=== PATIENT | male | born 1995 | race American Indian/Alaskan Native ===

== ENCOUNTER 2018-12-25 16:06 | Emergency (ER) | payer BC ==
--- NOTE | 2018-12-25 16:25 | Emergency Department Report ---
Blank Doc - Documentation Documentation: 23-year-old male that presents with acute on chronic headache with left side t ingling sensation. Denies any facial drooping. Stated has intermittent for the past year. Exam: normal neuro exam. no one sided weakness. This initial assessment/diagnostic orders/clinical plan/treatment(s) is/are subject to change based on patient's health status, clinical progression and re- assessment by fellow clinical providers in the ED. Further treatment and workup at subsequent clinical providers discretion. Patient/guardians urged not to elope from the ED as their condition may be serious if not clinically assessed and managed. Initial orders include: 1- Patient sent to [facility] for further evaluation and treatment 2- CT head
--- NOTE | 2018-12-25 20:13 | Cat Scan Report ---
CT head/brain wo con INDICATION / CLINICAL INFORMATION: 23 years Male; headache. TECHNIQUE: Routine CT head without contrast. All CT scans at this location are performed using CT dos e reduction for ALARA by means of automated exposure control. COMPARISON: None. FINDINGS: BRAIN / INTRACRANIAL CONTENTS: The brain demonstrate appropriate attenuation. The ventricular system is within normal limits in size and configuration. There is no clear CT evidence of acute intracrania l hemorrhage or significant mass effect. ORBITS: No significant abnormality of visualized orbits. SINUSES / MASTOIDS: No significant abnormality the visualized paranasal sinuses or mastoid air cells. CRANIOCERVICAL JUNCTION: No significant abnormality. ADDITIONAL FINDINGS: None. IMPRESSION: 1. There is no CT evidence of acute intracranial process. Signer Name: Prabhakar Nava MD Signed: 12/25/2018 8:09 PM Workstation Name: [id number]
[2018-12-25] MEDS ORDERED: IBUPROFEN 800 MG TAB PO ONE (20:39)
[2018-12-25] MEDS ORDERED: diphenhydrAMINE 25 MG CAP PO ONE (20:39)
[2018-12-25] MEDS ORDERED: predniSONE 20 MG TAB PO ONE (20:39)
--- NOTE | 2018-12-25 21:43 | Emergency Department Report ---
ED General Adult HPI - General Chief complaint: Medical Clearance Stated complaint: LIGHT HEADED/ (L) ARM FEELS WEEK Time Seen by Provider: 12/25/18 16:23 Source: patient Mode of arrival: Ambulatory Limitations: No Limitations - History of Present Illness Initial comments: Mr. Moreira is s 23 y/o aam who presents for neck and larm pain and tingling 5/10 pain scale , intermittent for past 1 year. Pt states neck injury s/p fall, pain intermittently since. pt has not followed up with orthopedics to this point, pain is exacerbated by movement and position. especially if he sleeps on it. pain is relieved by rest. Onset/Timin -: year(s) Location: neck, upper extremity Radiation: extremity Severity scale (0 -10): 3 Quality: burning Consistency: intermittent Improves with: rest Worsens with: movement Associated Symptoms: headaches Treatments Prior to Arrival: none - Related Data Previous Rx's Medication Instructions Recorded Last Taken Type Cyclobenzaprine [Flexeril] 10 mg PO BID PRN #20 tablet 12/25/18 Unknown Rx Menthol/Camphor [[place] 1 applicatio TP QID PRN #1 tube 12/25/18 Unknown Rx Ointment] Naproxen 500 mg PO BID PRN #30 tablet 12/25/18 Unknown Rx amLODIPine 10 mg PO DAILY #30 tab 12/25/18 Unknown Rx Allergies Allergy/AdvReac Type Severity Reaction Status Date / Time No Known Allergies Allergy Unverified 12/25/18 16:09 ED Review of Systems ROS: Stated complaint: LIGHT HEADED/ (L) ARM FEELS WEEK Other details as noted in HPI Constitutional: denies: chills, fever Eyes: denies: eye pain, eye discharge, vision change ENT: denies: ear pain, throat pain Respiratory: denies: cough, shortness of breath, wheezing Cardiovascular: denies: chest pain, palpitations Endocrine: no symptoms reported Gastrointestinal: denies: abdominal pain, nausea, diarrhea Genitourinary: denies: urgency, dysuria Musculoskeletal: myalgia, other (neck pain ). denies: back pain, joint swelling, arthralgia Skin: denies: rash, lesions Neurological: denies: headache, weakness, paresthesias Psychiatric: denies: anxiety, depression Hematological/Lymphatic: denies: easy bleeding, easy bruising ED Past Medical Hx - Past Medical History Previous Medical History?: Yes Hx Hypertension: Yes - Surgical History Past Surgical History?: No - Social History Smoking Status: Never Smoker Substance Use Type: None - Medications Home Medications: Home Medications Medication Instructions Recorded Confirmed Last Taken Type Cyclobenzaprine [Flexeril] 10 mg PO BID PRN #20 tablet 12/25/18 Unknown Rx Menthol/Camphor [[place] 1 applicatio TP QID PRN #1 tube 12/25/18 Unknown Rx Ointment] Naproxen 500 mg PO BID PRN #30 tablet 12/25/18 Unknown Rx amLODIPine 10 mg PO DAILY #30 tab 12/25/18 Unknown Rx ED Physical Exam - General Limitations: No Limitations General appearance: alert, in no apparent distress - Head Head exam: Present: normocephalic, normal inspection - Eye Eye exam: Present: normal appearance, PERRL, EOMI Pupils: Present: normal accommodation - ENT ENT exam: Present: mucous membranes moist - Neck Neck exam: Present: normal inspection, full ROM. Absent: tenderness, meningismus, lymphadenopathy, thyromegaly - Expanded Neck Exam Expanded Neck exam: Absent: tenderness (no posterior vertebral point tenderness ), midline deformity, anterior neck swelling, thyroid mass, carotid bruit, tracheal deviation - Respiratory Respiratory exam: Present: normal lung sounds bilaterally. Absent: respiratory distress, wheezes, stridor, chest wall tenderness - Cardiovascular Cardiovascular Exam: Present: regular rate, normal rhythm, normal heart sounds. Absent: systolic murmur, diastolic murmur, rubs, gallop - GI/Abdominal GI/Abdominal exam: Present: soft, normal bowel sounds. Absent: distended, tenderness, bruit, hernia - Rectal Rectal exam: Present: deferred - Extremities Exam Extremities exam: Present: normal inspection, full ROM, normal capillary refill. Absent: tenderness - Expanded Upper Extremity Exam Left Shoulder Exam: Present: normal inspection, full ROM. Absent: tenderness Upper Arm exam: Present: normal inspection, full ROM. Absent: tenderness Elbow exam: Present: full ROM. Absent: tenderness, swelling Forearm Wrist exam: Present: normal inspection, full ROM. Absent: tenderness Hand Wrist exam: Present: normal inspection, full ROM. Absent: tenderness Neuro motor exam: Present: wrist extension intact, thumb opposition intact, thumb IP flexion intact, thumb adduction intact, fingers 2-5 abduction intact Neurosensory exam: Present: 2-point discrimination, radial nerve intact Vascular: Present: normal capillary refill. Absent: pulse deficit radial art - Back Exam Back exam: Present: normal inspection, full ROM. Absent: tenderness, CVA tenderness (R), CVA tenderness (L), muscle spasm, paraspinal tenderness, ve rtebral tenderness, rash noted - Neurological Exam Neurological exam: Present: alert, oriented X3 - Psychiatric Psychiatric exam: Present: normal affect, normal mood - Skin Skin exam: Present: warm, dry, intact, normal color. Absent: rash ED Course Vital Signs 12/25/18 16:28 Temperature 97.6 F Pulse Rate 63 Respiratory 18 Rate Blood Pressure 155/96 O2 Sat by Pulse 98 Oximetry ED Medical Decision Making - Radiology Data Radiology results: report reviewed, image reviewed Ordering Physician: DONAL HIGGINS NP Date of Service: 12/25/18 Procedure(s): CT head/brain wo con Accession Number(s): [id number] cc: DONAL HIGGINS NP CT head/brain wo con INDICATION / CLINICAL INFORMATION: 23 years Male; headache. TECHNIQUE: Routine CT head without contrast. All CT scans at this location are performed using CT dose reduction for ALARA by means of automated exposure control. COMPARISON: None. FINDINGS: BRAIN / INTRACRANIAL CONTENTS: The brain demonstrate appropriate attenuation. The ventricular system is within normal limits in size and configuration. There is no clear CT evidence of acute i ntracranial hemorrhage or significant mass effect. ORBITS: No significant abnormality of visualized orbits. SINUSES / MASTOIDS: No significant abnormality the visualized paranasal sinuses or mastoid air cells. CRANIOCERVICAL JUNCTION: No significant abnormality. ADDITIONAL FINDINGS: None. IMPRESSION: 1. There is no CT evidence of acute intracranial process. Signer Name: Prabhakar Nava MD Signed: 12/25/2018 8:09 PM Workstation Name: [id number] Transcribed By: MR Dictated By: Prabhakar Nava MD Electronically Authenticated By: Prabhakar Nava MD Signed Date/Time: 12/25/182008 DD/ 05 TD/TT: - Medical Decision Making Pain is improved, there has been no new trauma or injury. This acute on chronic neck pain , plan, nsaid muscle relaxants, analgesic balm , dc to home with [facility] orthopedics in 2-3 days, pt verbalized agreement and understanding of discharge plan, Critical care attestation.: If time is entered above; I have spent that time in minutes in the direct care of this critically ill patient, excluding procedure time. ED Disposition Clinical Impression: Neck strain Qualifiers: Encounter type: initial encounter Qualified Code(s): S16.1XXA - Strain of muscle, fascia and tendon at neck level, initial encounter Disposition: DC-01 TO HOME OR SELFCARE Is pt being admited?: No Does the pt Need Aspirin: No Condition: Stable Instructions: Muscle Strain (ED) Prescriptions: amLODIPine 10 mg PO DAILY #30 tab Cyclobenzaprine [Flexeril] 10 mg PO BID PRN #20 tablet PRN Reason: Muscle Spasm Naproxen 500 mg PO BID PRN #30 tablet PRN Reason: pain Menthol/Camphor [Ford [place]ana Ointment] 1 applicatio TP QID PRN #1 tube PRN Reason: pain Referrals: PRIMARY CARE,MD [Primary Care Provider] - 3-5 Days [facility] [Outside] - 3-5 Days Forms: Work/School Release Form(ED) Time of Disposition: 22:15
[2018-12-25 22:20] VITALS: BP 156/100
== END 2018-12-25 22:20 | disposition home or self-care (01) ==
LOC: ED 16:06
DX: S16.1XXA Strain of muscle, fascia and tendon at neck level, initial encounter (principal); M79.602 Pain in left arm; R20.0 Anesthesia of skin; I10 Essential (primary) hypertension; W19.XXXA Unspecified fall, initial encounter; Y93.89 Activity, other specified; Y92.89 Other specified places as the place of occurrence of the external cause; Y99.8 Other external cause status
CPT/HCPCS: 70450; 99283; J7512

== ENCOUNTER 2021-09-23 00:43 | Emergency (ER) | payer SELFPAY ==
[2021-09-23] MEDS ORDERED: levETIRAcetam 1000 MG/NS 0.75% 1,000 MG/100 ML BAG IV ONE (03:02)
[2021-09-23] MEDS ORDERED: SODIUM CHLORIDE 0.9% 1000 ML 1,000 ML IV ONE (03:02)
--- NOTE | 2021-09-23 03:07 | Emergency Department Report ---
ED Seizure HPI - General Chief Complaint: Seizure Stated Complaint: SEIZURES Time Seen by Provider: 09/23/21 03:01 Source: EMS Mode of arrival: Stretcher Limitations: No Limitations - History of Present Illness Initial Comments: 26-year-old male with a history of seizure who now presents with an episode tonight that started out of the blue. No fever or chills reported. Patient reported that he was in his normal state of health when this happened. Patient denies any chest pain or shortness of breath. No cold or heat intolerance reported. Last episode was about a year ago. Patient is currently not taking any medication for seizure. No other modifying or associated factors reported. MD Complaint: seizure - Related Data Previous Rx's Medication Instructions Recorded Last Taken Type Cyclobenzaprine [Flexeril] 10 mg PO BID PRN #20 tablet 12/25/18 Unknown Rx Menthol/Camphor [[place] 1 applicatio TP QID PRN #1 tube 12/25/18 Unknown Rx Ointment] Naproxen 500 mg PO BID PRN #30 tablet 12/25/18 Unknown Rx amLODIPine 10 mg PO DAILY #30 tab 12/25/18 Unknown Rx Allergies Allergy/AdvReac Type Severity Reaction Status Date / Time No Known Allergies Allergy Unverified 12/25/18 16:09 ED Review of Systems ROS: Stated complaint: SEIZURES Other details as noted in HPI Comment: All other systems reviewed and negative Psychiatric: other (Seizure) ED Past Medical Hx - Past Medical History Previous Medical History?: Yes Hx Hypertension: Yes Hx Seizures: Yes - Surgical History Past Surgical History?: No - Social History Smoking Status: Never Smoker Substance Use Type: Alcohol - Medications Home Medications: Home Medications Medication Instructions Recorded Confirmed Last Taken Type Cyclobenzaprine [Flexeril] 10 mg PO BID PRN #20 tablet 12/25/18 Unknown Rx Menthol/Camphor [[place] 1 applicatio TP QID PRN #1 tube 12/25/18 Unknown Rx Ointment] Naproxen 500 mg PO BID PRN #30 tablet 12/25/18 Unknown Rx amLODIPine 10 mg PO DAILY #30 tab 12/25/18 Unknown Rx ED Physical Exam - General Limitations: No Limitations General appearance: postictal - Head Head exam: Present: atraumatic, normal inspection - Eye Eye exam: Present: normal appearance Pupils: Present: normal accommodation - ENT ENT exam: Present: normal exam, normal orophraynx, mucous membranes dry - Neck Neck exam: Present: normal inspection, full ROM. Absent: tenderness - Respiratory Respiratory exam: Present: normal lung sounds bilaterally. Absent: respiratory distress, accessory muscle use - Cardiovascular Cardiovascular Exam: Present: regular rate, normal rhythm, normal heart sounds - GI/Abdominal GI/Abdominal exam: Present: soft, normal bowel sounds. Absent: distended, te nderness - Extremities Exam Extremities exam: Present: normal inspection, normal capillary refill. Absent: pedal edema - Back Exam Back exam: Absent: tenderness - Neurological Exam Neurological exam: Present: alert, oriented X3 - Psychiatric Psychiatric exam: Present: normal affect, normal mood - Skin Skin exam: Present: warm, normal color ED Course Vital Signs 09/23/21 09/23/21 09/23/21 00:56 02:33 02:34 Temperature 98.1 F Pulse Rate 91 H 71 Respiratory 18 17 20 Rate Blood Pressure 160/120 O2 Sat by Pulse 98 97 99 Oximetry 09/23/21 09/23/21 09/23/21 02:45 03:00 03:15 Temperature Pulse Rate 66 69 74 Respiratory 15 16 16 Rate Blood Pressure 129/89 139/96 127/79 O2 Sat by Pulse 97 96 96 Oximetry 09/23/21 09/23/21 09/23/21 03:31 03:45 04:00 Temperature Pulse Rate 70 69 71 Respiratory 17 17 18 Rate Blood Pressure 133/96 129/74 152/100 O2 Sat by Pulse 99 97 98 Oximetry 09/23/21 09/23/21 04:15 04:30 Temperature Pulse Rate 67 65 Respiratory 17 14 Rate Blood Pressure 128/79 135/83 O2 Sat by Pulse 97 98 Oximetry ED Medical Decision Making - Lab Data Result diagrams: 09/23/21 03:23 09/23/21 03:23 - EKG Data -: EKG Interpreted by Ak EKG shows normal: sinus rhythm Rate: normal - EKG Data 09/23/21 05:22 Noted with normal sinus rhythm at a rate of 66 bpm, with left atrial enlargement and minimally ST diffuse ST elevation consistent with pericarditis clinically - Medical Decision Making Here with possible seizure -- but other differential such as stroke, myocardial infarction, hepatic encephalopathy, systemic infection with sepsis cannot be ruled out. In order to rule out those above we will go ahead and order CT scan of the brain, CBC, CMP, urinalysis, for any infectious process or electrolyte abnormality and thyroid panel for any hypo or hyper thyroidism. In the meantime we will go ahead and give immediate Keppra 1 g IV piggyback x1. to stabilize his membrane while waiting for the above labs-- Critical care attestation.: If time is entered above; I have spent that time in minutes in the direct care of this critically ill patient, excluding procedure time. ED Disposition Clinical Impression: Seizure Disposition: 01 HOME / SELF CARE / HOMELESS Is pt being admited?: No Does the pt Need Aspirin: No Condition: Stable Instructions: Seizure, Adult, [id number] Additional Instructions: It is very important that you call and follow-up with your neurology for further evaluation and treatment of your seizure as needed Please do not hesitate to call or return to emergency room if your symptoms worsen Increase your daily fluid to help your hydration Referrals: PATRICK CLEVELAND MD [Primary Care Provider] - 3-5 Days Time of Disposition: 05:21
[2021-09-23 03:41] LABS: Basophils % (Auto) 0.4 % (0.0-1.8); Eosinophils # (Auto) 0.2 K/mm3 (0.0-0.4); Eosinophils % (Auto) 3.6 % (0.0-4.3); Lymphocytes # (Auto) 2.6 K/mm3 (1.2-5.4); Lymphocytes % (Auto) 37.1 % (13.4-35.0); Mean Corpuscular HGB Conc 37 % (32-34); Mean Corpuscular Volume 91 fl (84-94); Monocytes # (Auto) 0.6 K/mm3 (0.0-0.8); Monocytes % (Auto) 8.8 % (0.0-7.3); Platelet Count 164 K/mm3 (140-440); Red Blood Count 4.63 M/mm3 (3.65-5.03); Red Cell Distribution Width 13.5 % (13.2-15.2)
[2021-09-23 03:42] LABS: Hematocrit 41.9 % (35.5-45.6); Hemoglobin 15.3 gm/dl (11.8-15.2)
[2021-09-23 03:59] LABS: Alanine Aminotransferase 13 units/L (7-56); Albumin 4.3 g/dL (3.9-5); BUN/Creatinine Ratio 11; Blood Urea Nitrogen 10 mg/dL (9-20); Calcium 9.1 mg/dL (8.4-10.2); Hemolysis Index 9
[2021-09-23 04:10] LABS: Free T4 (Free Thyroxine) 1.42 ng/dL (0.76-1.46)
[2021-09-23 05:47] VITALS: BP 128/73
--- NOTE | 2021-09-23 09:00 | Electrocardiograph Report ---
[facility] Test Date: 2021-09-23 Test Time: 03:51:59 Pat Name: CARLOS CONNELLY Department: Room: Gender: M Special Duty Nurse: URIEL : [id number] Requested By: MONSE RPESTON Order Number: [id number] Reading MD: Flex Herrera Measurements Intervals [place] Rate: 66 P: 45 VT: 178 QRS: 41 QRSD: 98 T: 61 QT: 396 QTc: 416 Interpretive Statements Sinus rhythm Probable left atrial enlargement No previous ECG available for comparison Electronically Signed On 09-23-2021 8:59:49 EDT by Flex Herrera
== END 2021-09-23 05:46 | disposition home or self-care (01) ==
LOC: ED 00:43
DX: R56.9 Unspecified convulsions (principal); I10 Essential (primary) hypertension; F10.20 Alcohol dependence, uncomplicated
CPT/HCPCS: 36415; 80053; 84439; 84443; 85025; 93005; 96374; 99284; J1953; J7030; 80320; G0480